=== PATIENT | female | born 1945 | race Caucasian/White ===

== ENCOUNTER 2016-08-04 09:45 | Day surgery (SDC) | payer MEDICARE, BC ==
--- NOTE | ~2016-08-04 | EGD ---
EGD REPORT [facility] [address] [place]. [address] NAME: SABI NORIEGA : [birth year] STATUS : REG [facility]#: [id number] AGE: 71 ADM/REG DATE : 08/04/16 MR#: [id number] REPORT SERV DATE: 08/04/16 DICTATED BY: JB RESENDEZ DATE: 08/04/16 REPORT STATUS : Draft [facility] DATE: 08/04/16 [facility] Patient Name: Sabi Noriega Date of : 1945 Attending MD: JB RESENDEZ MD Procedure Date No Time: 08/04/2016 Procedure: Colonoscopy Indications: High risk colon cancer surveillance: Personal history of colonic polyps, Last colonoscopy: June 2010 Referring MD: THOMAS CHU Medicines: See the Anesthesia note for documentation of the administered medications Complications: No immediate complications. Procedure: Pre-Anesthesia Assessment: - ASA Grade Assessment: III - A patient with severe systemic disease. After I obtained informed consent, the scope was passed under direct vision. Throughout the procedure, the patient's blood pressure, pulse, and oxygen saturations were monitored continuously. The PCF [id number] was introduced through the anus and advanced to the terminal ileum, with identification of the appendiceal orifice and IC valve. The colonoscopy was performed without difficulty. The patient tolerated the procedure well. The quality of the bowel preparation was adequate. Findings: The perianal and digital rectal examinations were normal. Diverticula were found in the sigmoid colon. Internal hemorrhoids were found during retroflexion and were small. Impression: - Diverticulosis in the sigmoid colon. - Internal hemorrhoids. Recommendation: - Patient has a contact number available for emergencies. The signs and symptoms of potential delayed complications were discussed with the patient. Return to normal activities tomorrow. Written discharge instructions were provided to the patient. - Regular diet. - Continue present medications. - Repeat colonoscopy in 5 years for surveillance. Procedure Code(s): --- Professional --- 57733, Colonoscopy, flexible, proximal to splenic EGD REPORT [facility] [address] [place] [address] NAME: SABI NORIEGA : [birth year] STATUS : REG [facility] PAT#: [id number] AGE: 71 ADM/REG DATE : 08/04/16 MR#: [id number] REPORT SERV DATE: 08/04/16 DICTATED BY: JB RESENDEZ DATE: 08/04/16 REPORT STATUS : Draft TRANSCRIBED BY: [employer] DATE: 08/04/16 flexure; diagnostic, with or without collection of specimen(s) by brushing or washing, with or without colon decompression (separate procedure) Diagnosis Code(s): --- Professional --- K64.8, Other hemorrhoids K57.30, Diverticulosis of large intestine without perforation or abscess without bleeding Z86.010, Personal history of colonic polyps CPT copyright 2013 [employer]. All rights reserved. The codes documented in this report are preliminary and upon suspender maker review may be revised to meet current compliance requirements. Jb Resendez MD JB RESENDEZ MD 08/04/2016 11:53 AM This report has been signed electronically. Number of Addenda: 0 Note Initiated On: 08/04/2016 11:31 AM Scope Withdrawal Time 0 hours 6 minutes 38 seconds [address] [facility] [address] [address]
[~2016-08-04 09:45] MED LIST: ASAB PO; BUSPIRONE7.5 MG PO; CALTRA600D PO; LIPITOR20 PO; LOP25 PO; MULTIPLE VIT PO; NORV25 PO; P20 PO; PEP20 PO; PLAVIX PO; PREV30 PO; PRIN20 PO; PROZAC PO
== END 2016-08-04 23:59 | disposition home or self-care (01) ==
LOC: DMU 09:45
PROVIDERS: Internal Medicine Gastroenterology
PROC: 0DJD8ZZ Inspection of Lower Intestinal Tract, Via Natural or Artificial Opening Endoscopic (ICD-10-PCS; principal; 2016-08-04 12:30)
DX: Z12.11 Encounter for screening for malignant neoplasm of colon (principal); K64.8 Other hemorrhoids; K57.30 Diverticulosis of large intestine without perforation or abscess without bleeding; I50.9 Heart failure, unspecified; M19.90 Unspecified osteoarthritis, unspecified site; K21.9 Gastro-esophageal reflux disease without esophagitis; F41.9 Anxiety disorder, unspecified; I25.2 Old myocardial infarction; Z86.010 Personal history of colon polyps; Z88.2 Allergy status to sulfonamides; Z95.5 Presence of coronary angioplasty implant and graft; Z88.5 Allergy status to narcotic agent; Z91.041 Radiographic dye allergy status; Z85.3 Personal history of malignant neoplasm of breast; Z90.710 Acquired absence of both cervix and uterus; Z90.13 Acquired absence of bilateral breasts and nipples; Z95.2 Presence of prosthetic heart valve; Z79.899 Other long term (current) drug therapy; Z79.82 Long term (current) use of aspirin